=== PATIENT | male | born 1935 | race Hispanic/Latino ===

== ENCOUNTER 2019-09-28 11:26 | Emergency (ER) | payer MEDICARE, OTHER ==
[~2019-09-28] VITALS: Ht 172.7 cm; Wt 63.6 kg
[2019-09-28] MEDS ORDERED: DEXAMETHASONE SOD PHOS 10 MG/1 ML VIAL IM ONE (11:45)
[2019-09-28] MEDS ORDERED: PREDNISONE20 MG PO (11:47)
[2019-09-28] MEDS ORDERED: NAPROSYN500 MG PO (11:48)
[2019-09-28] MEDS ORDERED: DEXAMETHASONE SOD PHOS 10 MG/1 ML VIAL ONE (12:00)
[2019-09-28] MEDS ORDERED: LISINOPRIL10 MG PO (12:16)
[2019-09-28] MEDS ORDERED: GABAPENTIN300 MG PO (12:16)
[2019-09-28] MEDS ORDERED: FLOMAX0.4 MG PO (12:16)
[2019-09-28] MEDS ORDERED: CLOPIDOGREL75 MG PO (12:16)
[2019-09-28] MEDS ORDERED: ISOSORBIDE MONO20 MG PO (12:16)
== END 2019-09-28 12:12 | disposition home or self-care (01) ==
LOC: FSED 11:26
DX: M25.531 Pain in right wrist (principal); M79.641 Pain in right hand; M06.9 Rheumatoid arthritis, unspecified
CPT/HCPCS: 96372; 99283; J1100

== ENCOUNTER 2019-10-16 17:44 | Emergency (ER) | payer MEDICARE ==
[~2019-10-16] VITALS: Ht 172.7 cm; Wt 63.5 kg
[~2019-10-16 17:44] MED LIST: CLOPIDOGREL75 MG PO; FLOMAX0.4 MG PO; GABAPENTIN300 MG PO; ISOSORBIDE MONO20 MG PO; LISINOPRIL10 MG PO; NAPROSYN500 MG PO; PREDNISONE20 MG PO
--- OUTSIDE RECORDS SUMMARY | 2019-10-16 17:46 | XMS REPORT ---
Author Author [facility] Address Unknown Phone Unavailable Care Team Providers Care Containers Sales Representative Name Role Phone Unavailable Unavailable Problems This patient has no known problems. Allergies, Adverse Reactions, Alerts This patient has no known allergies or adverse reactions. Medications This patient has no known medications. Encounters Start Date/Time End Date/Time Encounter Type Admission Type Attending Clinicians Care Facility Care Department Encounter ID 2019-05-24 01:37:00 2019-05-24 01:37:00 Outpatient [id number]
[2019-10-16] MEDS ORDERED: ALBUTEROL/IPRATROPIUM 3 ML NEB NEB ONE (18:15)
[2019-10-16] MEDS ORDERED: ALBUTEROL/IPRATROPIUM 3 ML NEB ONE (18:38)
--- NOTE | 2019-10-16 18:49 | Diagnostic Imaging Report ---
EXAMINATION: PA and lateral views of the chest. COMPARISON: None CLINICAL HISTORY: Upper respiratory infection, cough, right-sided discomfort DISCUSSION: Lines/tubes: None. Lungs: The lungs are well inflated and clear. There is no evidence of pneumonia or pulmonary edema. Pleura: There is no pleural effusion or pneumothorax. Heart and mediastinum: Cardiomediastinal silhouette is unremarkable. Pulmonary vasculature is normal. Bones and soft tissues: No acute bony abnormalities. Age-appropriate degenerative changes in the thoracic spine IMPRESSION: No acute cardiopulmonary abnormalities. Signed by: Dr. Car Sanchez M.D. on 10/16/2019 6:48 PM
[2019-10-16] MEDS ORDERED: DOXYCYCLINE MO100 M1 PO (19:01)
[2019-10-16] MEDS ORDERED: PREDNISONE20 MG PO (19:02)
[2019-10-16] MEDS ORDERED: TESSALON PERLE100 MG PO (19:03)
[2019-10-16] MEDS ORDERED: PROAIR HFA INH8.5 GM INH (19:04)
== END 2019-10-16 19:14 | disposition home or self-care (01) ==
LOC: FSED 17:44
DX: R05 Cough (principal); J20.9 Acute bronchitis, unspecified; J06.9 Acute upper respiratory infection, unspecified; I10 Essential (primary) hypertension; I73.9 Peripheral vascular disease, unspecified; I25.10 Atherosclerotic heart disease of native coronary artery without angina pectoris
CPT/HCPCS: 71046; 99283

== ENCOUNTER → 2020-07-09 | Day surgery (SDC) | payer MEDICARE ==
[2020-07-06 09:39] LABS: BASOPHILS % 0.3 % (0.0-1.0); EOSINOPHILS # (AUTO) 0.1 (0.0-0.4); EOSINOPHILS % 1.5 % (0.0-6.0); HEMATOCRIT 31.8 % (38.2-49.6); LYMPHOCYTES # (AUTO) 0.8 (1.0-3.2); LYMPHOCYTES % 13.6 % (18.0-39.1); MEAN CORPUSCULAR HEMOGLOBIN 26.1 pg (28-32); MEAN CORPUSCULAR HGB CONC 31.4 g/dL (31-35); MONOCYTES # (AUTO) 0.5 (0.2-0.8); MONOCYTES % 8.1 % (4.4-11.3); NEUTROPHILS # (AUTO) 4.5 (2.1-6.9); NEUTROPHILS % 76.3 % (38.7-80.0); PLATELET COUNT 353 x10e3/uL (140-360); RED BLOOD COUNT 3.83 x10e6/uL (4.3-5.7); RED CELL DISTRIBUTION WIDTH 14.4 % (11.7-14.4)
[~2020-07-09] MED LIST changes: +AMITRIPTYLINE H25 MG PO; +ATORVASTATIN CA10 MG PO; +DOXYCYCLINE MO100 M1 PO; +HYOSCYAMINE 0.125 MG TAB ONE; +ISOSORBIDE MONO60 MG PO; +LIDOCAINE HCL 2% LOCAL INJ 5 ML SDV VIAL INJ ONE; +LOSARTAN POTASS25 MG PO; +PROAIR HFA INH8.5 GM INH; +PROPOFOL IV EMULSION 10 MG/ML 20 ML VIAL ONE; +PROTONIX20 MG PO; +SUCRALFATE1 GM PO; +TESSALON PERLE100 MG PO; +ULTRAM50 MG PO; +VERAPAMIL ER120 MG PO
[2020-07-09 17:10] VITALS: BP 127/83
--- NOTE | 2020-07-09 19:04 | Operative Report ---
DATE OF PROCEDURE: 07/09/2020 SURGEON: Mak Tompkins MD PROCEDURES: EGD with biopsies and colonoscopy with polypectomy. INDICATIONS FOR EGD: Dysphagia. INDICATIONS FOR COLONOSCOPY: Surveillance colonoscopy, personal history of multiple colon polyps. MEDICATIONS: The patient was done under MAC, please see anesthesiologist's note. PROCEDURE IN DETAIL: With the patient in the left lateral decubitus position, a flexible fiberoptic Olympus gastroscope was introduced into the esophagus under direct visualization without any difficulty. There was friability and nodularity noted at the GE junction. The scope was then advanced with ease into the stomach. Mucosa overlying the antrum and the body revealed some patchy areas of erythema. Pylorus was of normal contour and shape, was intubated with ease and the scope was advanced all the way to the second portion of the duodenum. The scope was then withdrawn slowly. Mucosa overlying the proximal second portion and duodenal bulb appeared to be within normal limits. The scope was then withdrawn back into the stomach and retroflexed, and a large fungating mass was noted at the cardia/GE junction. Biopsies were obtained for both frozen as well as permanent section. 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 The scope was then straightened out and it was subsequently withdrawn. An approximately 2 to 3 cm raised nodular area was noted to extend from the GE junction proximally and most likely that is an extension of the tumor and also biopsies were obtained from the aforementioned lesion. The scope was subsequently withdrawn and the patient tolerated the procedure well. IMPRESSION: 1. Large fungating mass, cardia/GE junction extending approximately 2 to 3 cm proximally in the esophagus. Biopsies were obtained for both frozen and permanent sections. 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 2. Gastritis. The patient did have a recent CAT scan of the abdomen. He will need an Oncology consult. The patient was then turned around and after adequate lubrication of the anal canal, a flexible fiberoptic Olympus colonoscope was inserted into the rectum with ease and advanced all the way to the cecum. It was then withdrawn slowly. Mucosa overlying the cecum, ascending colon, and transverse colon were grossly unremarkable other than for some diverticular disease. Two polyps up to 1.3 cm in size were hot snared from the descending colon and one polypectomy site was hemoclipped x2. The rest of the descending and sigmoid other than for diverticular disease was grossly unremarkable. The rectum was grossly unremarkable. The scope was then retroflexed into the distal rectum and moderate-sized internal hemorrhoids were noted, none of which was actively bleeding. The scope was then straightened out, it was subsequently withdrawn, and the patient tolerated the procedure well. IMPRESSION: 1. Diverticulosis, more pronounced in the left colon. 2. Descending colon polyps x2 with largest approximately 1.3 cm in size, polypectomy site hemoclipped x2. 3. Internal hemorrhoids, none actively bleeding. PLAN: Follow up histology. Mak Tompkins MD [facility] [place] /[id number] cc: Fariba Singleton MD
== END | disposition home or self-care (01) ==
LOC: OR 14:29
PROVIDERS: ATTEND Internal Medicine Gastroenterology
DX: C16.0 Malignant neoplasm of cardia (principal); D12.4 Benign neoplasm of descending colon; K29.70 Gastritis, unspecified, without bleeding; K57.30 Diverticulosis of large intestine without perforation or abscess without bleeding; K64.8 Other hemorrhoids; I10 Essential (primary) hypertension; K80.80 Other cholelithiasis without obstruction; Z01.810 Encounter for preprocedural cardiovascular examination; Z01.812 Encounter for preprocedural laboratory examination; Z20.828 Contact with and (suspected) exposure to other viral communicable diseases
CPT/HCPCS: 36415; 43239; 45385; 85025; 88172; 88173; 88305; 88331; 93005; J2001; J2704; U0002; 45378